=== PATIENT | male | born 1965 | race Caucasian/White ===

== ENCOUNTER 2021-08-12 17:52 | Inpatient (IN) | payer BC ==
[~2021-08-12] VITALS: Ht 167.6 cm; Wt 125.1 kg
[~2021-08-12 17:52] MED LIST: ALEVE220 M1 PO; CIPROFLOXACIN250 MG PO; FLUVIRIN IM; GLUCOPHAGE500 MG PO; IBUPROFEN800 MG PO; METRONIDAZOLE250 MG PO; VITAMIN D1000 UNIT PO
--- OUTSIDE RECORDS SUMMARY | 2021-08-12 18:00 | XMS ---
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 Maria Elena VISIT COUNT (12 MO.) 1 IBAN Ortega TOTAL 1 NOTE: Visits indicate total known visits. ED/UCC VISIT TRACKING (12 MO.) 08/12/2021 17:53 IBAN [place] TYPE: Emergency COMPLAINT: - CHEST PAIN INPATIENT VISIT TRACKING (12 MO.) No inpatient visits to display in this time frame [id number]
[2021-08-12] MEDS ORDERED: FLOVENT HFA10.6 GM INH (18:34)
--- NOTE | 2021-08-13 01:30 | NUR ---
PT ARRIVED TO THE UNIT AROUND 0002 AWAKE AND ALERT ON THE DILTIAZEM DRIP AT 15MG/HR. PT ABLE TO STAND UP AND VOID INTO URINAL PRIOR TO GETTING INTO THE CCU BED. VITALS TAKEN AT THIS TIME. PT ALERT AND ORIENTED X4 AND DENIES CHEST PAIN OR SHORTNESS OF BREATH WHEN ASKED. DILTIAZEM DRIP TITRATED DOWN TO 10MG/HR AT 0020 DUE TO BP BEING BELOW 95 SBP AND HR IN THE 70-80'S. SCHEDULED MEDICATIONS ADMINISTERED AFTERWARDS (SEE MAR). PT ASSESSED AFTERWARDS, CLEAR S1 S2 HEARD, RATE IRREGULAR, LUNGS ARE CLEAR, ACTIVE BOWEL TONES, STRONG RADIAL AND PEDAL PULSES, BRISK CAPILLARY REFILL. PT PROVIDED WITH A SANDWICH BOX AFTERWARDS PER HIS REQUEST. AT 0115 THE DILTIAZEM DRIP WAS TITRATED DOWN TO 7.5 MG/HR HR WAS REMAINING IN THE 70'S BP IN THE 90'S. AGAIN AT 0130 DILTIAZEM DRIP WAS TITRATED DOWN FURTHER TO 2.5MG/HR DUE TO HAVING A BP OF 81/70 (76) AND A HEART RATE IN THE 60'S. PT DENIES LIGHTHEADEDNESS OR DIZZYNESS WHEN ASKED. PT REPORTS NO FURTHER NEEDS AT THIS TIME AND IS NOW RESTING IN BED. WILL CONTINUE PLAN OF CARE. CALL LIGHT IN REACH, BED IN LOWEST POSITION, DILTIAZEM DRIP INFUSING AT 2.5 MG/HR.
--- NOTE | 2021-08-13 01:54 | NUR ---
RAPID RESPONSE CALLED ON THIS PT
--- NOTE | 2021-08-13 03:41 | NUR ---
@0154 rapid reponse called, Primary rn on phone to dr stone. This RN 1:1 with pt. Hr 35, diaphoretic, head back, eyes rolled back, cold, shaking, arms clenched into his chest. o2 placed by Sendy, oximask 15l, pt sluring words. Accucheck @9510=298. house superviser, nelly; davion rt; Sendy RN; Yaritza RN; xray all present. [address] stone present 0203. Iv Lr started wide open @0207. manual bp 62/28. 0.5 mg atropine given @0211; hr 42-36, oxygen 100% on 5l. second dose apropine given 0216 of 0.5 mg iv. bp 63/25 (37) 0217. dopamine 2.5 mcg drip @ 0219, hr 46. Pt placed in trendelenburg @223, not tolerated well. Pt complaining of abdominal pressure, as though he needed to have bm. ekg @ 0221. Staff attempted to put pt on bedpan, howver, pt changed his mind, said pressure decreased. @0226 manual bp of 72/50, heart rates 47-50's. dopamine drip increased to 5 mcg's/kg @0227. pt complain of being dizzy, does state that he feels better than when he "woke up" after symptoms first started. pressure bag of Lr continue. dopamine drip increased to 10 mcg/kg @0231 bp 50/40. second pressure bag LR started @0238. dopamine drip increased to 10 mcg/kg. complained of nausea, zofran 4 mg given At 0240. hr up to 70 @ 0241. pt states less abdominal pressure 0246. manual bp per dr stone of 88/58. pt to ct with dr stone, pt primary rn isabela, RT Jeaneth ricardo, honey extractor, nelly house superviser @ 0250. rapid response done at that time.
--- NOTE | 2021-08-13 04:00 | NUR ---
PT IN BED AWAKE ON 15L O2 OXYMASK PT TAKEN TO CT AROUND 0245. 2 BAGS OF LR ON STRAIGHT TUBING WITH PRESSURE BAGS, DOPAMINE INFUSING AT 15MCG/MIN. THIS RN, VISUAL PRESENTATION MANAGER DR. SARAH CONTRERAS, AND RT LANDY TRANSPORTED PT TO CT. PT MOVED ONTO CT BED, RECEIVED CONTRAST AND HAD AN ABDOMINAL CT. PT MOVED BACK TO THE CCU STRETCHER AFTERWARDS AND HAD AN EPISODE OF EMESIS. AFTER PT WAS FINISHED PT WAS TRANSPORTED BACK TO THE CCU WITH THE SAME CARE TEAM. PT ARRIVED BACK TO THE CCU AT 0310. DOPAMINE TITRATED DOWN TO 10MCG/MIN PER DR. SMITH AT 0319 BP WAS 100/60 MANUAL, 131 HR. AT 0324 THE DOPAMINE INFUSION WAS TITRATED DOWN TO 5MCG/MIN THE BP WAS 100/60 MANUAL AND HR 122. DOPAMINE WAS TURNED OFF AT 0328 BP WAS 96/60 WITH A HR OF 122. AT 0355 DR. SMITH INFORMED THIS RN TO ADMINISTER PHENLYEPHRINE AND START RATE AT 30MCG/MIN. WILL CONTINUE PLAN OF CARE AND ADMINISTER MEDICATION WHEN IT IS MIXED. PT LAYING IN BED AT THIS TIME ON ROOM AIR, CALL LIGHT IN REACH, BED IN LOWEST POSITION, PT SALINE LOCKED.
--- NOTE | 2021-08-13 04:14 | NUR ---
@0244 pt had xray completed. cbc drawn and sent to lab at 8470
--- NOTE | 2021-08-13 05:45 | NUR ---
PT LAYING IN BED AWAKE AND ALERT ON 5L O2 NC. PT BLADDER SCANNED PER DR. SMITH, 232ML SCANNED AT THIS TIME. DR. SMITH IN ROOM AT THIS TIME ASSESSING PT. PHENYLEPHRINE STARTED INTO IV ON RIGHT AC AT 30MCG/MIN PER MD (SEE OCT). PHENYLEPHRINE TITRATED UP BY 30 MCG INCREMENTS PER MD AND STOPPED AT 90 MCG/MIN AT 0437. BP AT THIS TIME WAS 76/59 (65). HR OF 74. DR. SMITH LEFT ROOM AFTERWARDS. PT TITRATED UP TO 120 MCG/MIN AT 0447 TO MAINTAIN MAP'S ABOVE 65. PT NOW ON ROOM AIR, SPO2 92-100%. PT REPORTS FEELING SHORT OF BREATH AT TIMES. PT ASSESSED, LUNGS CLEAR IN UPPER LOBES, DIMINISHED WITH FINE CRACKLES IN THE LOWER BASE. CLEAR S1 S2 PRESENT, RYTHM IRREGULAR. BRISK CAPILLARY REFILL PRESENT. PT COLOR IS PALE IN BADOMEN AND LOWER LEGS. +1 PEDAL PULSES +2 RADIAL PULSES, PT DENIES NUMBNESS OR TINGLING AND IS ALERT AND ORIENTED X4. PT ATTEMPTED TO VOID INTO URINAL AROUND 0530 BUT WAS UNABLE TO. PT NOW BACK TO SITTING ON THE SIDE OF THE BED ON ROOM AIR AND REPORTS NO FURTHER NEEDS. CALL LIGHT IN REACH, BED IN LOWEST POSITION, PHENYLEPHRINE INFUSING AT 120MCG/MIN WILL CONTINUE PLAN OF CARE.
--- NOTE | 2021-08-13 05:59 | NUR ---
I WAS CALLED OVER FOR RAPID RESPONSE ON PT. HIS HEART RATE WAS IN THE 40S EKG WAS DONE TWICE AND O2 WAS PLACED ON PT WENT TO ICU TO MONITOR PT RESPIRATORY STATUS PT IS STABEL
--- NOTE | 2021-08-13 06:22 | NUR ---
PT SITTING AT THE SIDE OF THE BED ALERT AND ORIENTED AT THIS TIME ON ROOM AIR, PT STILL ON 120MCG/MIN OF NEOSYNEPHRINE TO MAINTAIN MAP ABOVE 65. PT DENIES LIGHTHEADEDNESS, DIZZNESS OR PAIN AT THIS TIME WHEN ASKED. PT REPORTS NO FURTHER NEEDS WHEN ASKED WILL CONTINUE PLAN OF CARE. CALL LIGHT INR EACH, BED IN LOWEST POSITION.
--- NOTE | 2021-08-13 06:46 | NUR ---
PT SITTING AT THE SIDE OF THE BED AT THIS TIME ON 5L O2 OXYMASK ALERT AND ORIENTED. PT TITRATED DOWN ON THE NEOSYNEPHRINE DRIP FROM 120 TO 90 MCG/MIN (SEE MAR/VITALS). PT UP AT THE SIDE OF THE BED TO VOID. PT ABLE TO VOID ONLY 50ML OF URINE AND STATES HE FEELS IF HE HAS MORE TO VOID BUT CANT AT THIS TIME. PT DENIES DIZZYNESS WHEN STANDING AT THE SIDE OF THE BED. PT NOW SITTING AT THE SIDE OF THE BED RESTING. PT REPORTS NO FURTHER NEEDS AT THIS TIME, WILL CONTINUE PLAN OF CARE. CALL LIGHT IN REACH, BED IN LOWEST POSITION.
--- NOTE | 2021-08-13 07:57 | NUR ---
IN PATIENT'S ROOM FOR ASSESSMENT. PATIENT SITTING UP ON EDGE OF BED UPON INITIAL ASSESSMENT. PATIENT REMAINS ON PHENYLEPHRINE AT 90 MCG/MIN AT THIS TIME. PT ALSO REMAINS IN AFIB, RATES IN THE 80-90s WHILE IN ROOM TALKING WITH PATIENT. PATIENT'S BLOOD PRESSURE 93/54 MOST RECENTLY. LUNG SOUNDS ARE RELATIVELY CLEAR IN UPPER LOBES AND FINE CRACKLES IN THE BASES. PATIENT STATES HE DOES NOT HAVE ANY CHEST PAIN AT THE MOMENT, BUT DOES STATE HE HAS SOME "TWINGES" IN THE NIGHT. PATIENT IS ALSO FEELING HOT/COLD AND IS DIAPHORETIC AT THIS TIME. CAP REFILL IS <3 SECONDS AT THIS TIME. NO PITTING EDEMA NOTED. PT DUE TO VOID AND STATES HE HAS TRIED A COUPLE OF TIMES BUT UNABLE TO VOID YET. BLADDER SCANNED HER BILLIARD PARLOR MANAGER FOR AROUND 230 ML. PLAN OF CARE DISCUSSED. PT NOT WANTING ANY BREAKFAST AT THIS TIME. CALL LIGHT WITHIN REACH. CONTINUE TO MONITOR.
--- NOTE | 2021-08-13 08:30 | NUR ---
ECHO IN ROOM AT THIS TIME. PT GIVEN 9 UNITS OF SUB Q INSULIN PER SS FOR CBG OF 348. SP02 IS 97% ON ROOM AIR. HR IN THE 80s. WHEN PATIENT GOES FROM SITTIGN UP RIGHT TO LAYING DOWN, PATIENT SUDDENLY FEELS WINDED AND SHORT OF BREATH. HEAD ELEVATED FOR COMFORT AND PT INSTRUCTED ON BREATHING TECHNIQUES. WILL CONTINUE TO MONITOR.
[2021-08-13] MEDS ORDERED: VENTOLIN HFA18 GM INH (09:20)
[2021-08-13] MEDS ORDERED: METFORMIN HCL500 MG PO (09:23)
[2021-08-13] MEDS ORDERED: MUCINEX FAST-M180 M4 PO (10:12)
--- NOTE | 2021-08-13 10:13 | NUR ---
MED REC COMPLETED BY PHARMACY
--- NOTE | 2021-08-13 12:13 | NUR ---
THIS RN PLACED CALLS TO [facility] DIFFERENT H[facility]PITALS IN [facility], [facility], [facility]. THE HOSPITALS DECLINED TRANSFER AT THIS TIME AND REPORT THAT THEY ARE CURRENTLY BOARDING PTS THEMSELVES IN THEIR ER. DR. SARAH JENSEN.
--- NOTE | 2021-08-13 12:42 | NUR ---
PICC INSERTION NOTE: ASKED BY DR. SMITH TO EVALUATE PATIENT FOR POTENTIAL PICC LINE PLACEMENT. AFTER REVIEWING THE CHART AND INTERVIEWING THE PATIENT, NO ABSOLUTE CONTRAINDICATIONS WERE IDENTIFIED. PATIENT WAS ABLE TO SIGN CONSENT FOR PICC AND ASK QUESTIONS REGARDING PROCEDURE. PATIENT'S RIGHT ARM WAS EVALUATED FIRST USING THE SITE RITE 8 U/S. PATIENT'S BASILIC VEIN WAS EASILY IDENTIFIED, WELL THE BRACHIAL, AND THE BASILIC APPEARED TO BE THE BEST CANDIDATE FOR A PICC LINE. PATIENT IS ON VASOPRESSORS AND IN NEED OF STABLE IV ACCESS. USING A 4FR PICC, IT WAS ESTIMATED THAT A PICC WOULD TAKE UP 25% OF THE VEIN DIAMTER, AND THEREFORE THIS VEIN WAS CHOSEN FIRST CHOICE FOR A PICC. PATIENT'S ARM WAS PREPPED AND STERILLY DRAPPED USING CDC RECOMMENDATIONS FOR STERILE PROCEDURE. IV ACCESS WAS OBTAINED UPON FIRST ATTEMPT INTO THE BASILIC VEIN AND DARK, NON PULSATILE BLOOD WAS RETURNED. GUIDEWIRE WAS THEN THREADED EASILY INTO VEIN. AFTER CATHETER WAS REMOVED, INTRODUCER WAS SLID OVER WIRE AND INTO VEIN, AFTER USING SCALPEL TO OPEN SKIN OPENING SLIGHTLY. NEXT, AFTER GUIDEWIRE WAS REMOVED, THE PICC WAS ADVANCED SLOWLY INTO THE VEIN THROUGH THE INTRODUCER. TIP LOCATION TECHNOLOGY WAS UTILIZED TO MONITOR TIP LOCATION THROUGH CENTRAL CHEST. CHEST XRAY WAS TAKEN AFTER OPTIMAL POSITION. DR. SMITH IN PATIENT'S ROOM TO REVIEW THIS AND RECOMMEDED PULLING PICC BACK 3 CM, WHICH WAS DONE. 2ND CHEST XRAY WAS TAKEN AND DR. SMITH APPROVED TIP LOCATION. STERILE DRESSING APPLIED AND PRESSURE DRESSING APPLIED DUE TO SOME BLEEDING UNDER THE DRESSING NOTED. EDUCATION MATERIAL PROVIDED FOR PATIENT AND PLACED IN CHART.
--- NOTE | 2021-08-13 14:38 | NUR ---
PATIENT SITTING UPRIGHT IN BED AND RESTING. PT REMAINS OFF NEOSYNEPHRINE GTT SINCE 1230 AND MOST RECENT BP IS 115/97 (105). PT HAS NOW VOIDED TO URINAL AGAIN FOR 250 ML. PT STATES OVERALL HE IS FEELING OKAY WHEN HE IS RESTING IN BED AND NOT MOVING AROUND MUCH, BUT WITH ANY ACITIVYT, PULLING UP BLANKETS OR REPOSITIONING IN BED FOR INSTANCE, HE BECOMES SHORT OF BREATH AND "CAN FEEL HIS HEART POUNDING AGAIN." PT REMAINS IN AFIB, HR IN THE 90-110s. CONTINUE TO MONITOR CLOSELY.
--- NOTE | 2021-08-13 16:35 | EKG ---
[facility] [address] [place] [address] Signed Atrial fibrillation with rapid ventricular response Nonspecific T wave abnormality Abnormal ECG When compared with ECG of 30-JUN-2018 10:11, Atrial fibrillation has replaced Sinus rhythm Vent. rate has increased BY 93 BPM Non-specific change in ST segment in Inferior leads Non-specific change in ST segment in Anterolateral leads Nonspecific T wave abnormality now evident in Lateral leads Confirmed by ALEXANDRA SMITH MD ([id number]) on 08/13/2021 4:35:45 PM Electronically Signed By: ALEXANDRA SMITH MD 08/13/21 1635 PATIENT NAME: TANISHA CARTAGENA Electrocardiogram DATE OF : 63 PHYSICIAN: ALEXANDRA SMITH MD REPORT #: [id number] REPORT IS CONFIDENTIAL AND NOT TO BE RELEASED WITHOUT AUTHORIZATION
--- NOTE | 2021-08-13 16:36 | EKG ---
[facility] [address] [facility] [place] [address] Signed Atrial fibrillation with slow ventricular response T wave abnormality, consider lateral ischemia Abnormal ECG When compared with ECG of 12-AUG-2021 18:00, (Unconfirmed) Vent. rate has decreased BY 94 BPM Nonspecific T wave abnormality, improved in Inferior leads Nonspecific T wave abnormality, worse in Anterior leads Confirmed by ALEXANDRA SMITH MD ([id number]) on 08/13/2021 4:35:52 PM Electronically Signed By: ALEXANDRA SMITH MD 08/13/21 1636 PATIENT NAME: TANISHA CARTAGENA Electrocardiogram DATE OF : 63 PHYSICIAN: ALEXANDRA SMITH MD REPORT #: [id number] REPORT IS CONFIDENTIAL AND NOT TO BE RELEASED WITHOUT AUTHORIZATION
--- NOTE | 2021-08-13 16:36 | EKG ---
[facility] [address] [facility] [facility] [place] [address] Signed Atrial fibrillation with slow ventricular response T wave abnormality, consider anterolateral ischemia Abnormal ECG When compared with ECG of 13-AUG-2021 01:53, (Unconfirmed) Inverted T waves have replaced nonspecific T wave abnormality in Anterior leads Confirmed by ALEXANDRA SMITH MD ([id number]) on 08/13/2021 4:35:57 PM Electronically Signed By: ALEXANDRA SMITH MD 08/13/21 1636 PATIENT NAME: TANISHA CARTAGENA Electrocardiogram DATE OF : 63 PHYSICIAN: ALEXANDRA SMITH MD REPORT #: [id number] REPORT IS CONFIDENTIAL AND NOT TO BE RELEASED WITHOUT AUTHORIZATION
--- NOTE | 2021-08-13 17:09 | NUR ---
PATIENT RESTING IN BED AT THIS TIME. PT WORKED WITH RT ON IS USE AND DOES THIS WELL. PT STARTING TO COUGH UP SPUTUM, SOME OF WHICH IS PINK TINGED AND EVEN ONE THAT WAS BLOODY TINGED. DR. SMITH TO BE NOTIFIED.
--- NOTE | 2021-08-13 18:23 | NUR ---
DR. SMITH IN TO SEE PATIENT AT THIS TIME AND DISCUSS FINDINGS OF ECHO. PATIENT AND PHYSICIAN DISCUSSING MEDICATIONS AND PLANS OF CARE.
--- NOTE | 2021-08-13 19:00 | NUR ---
20 MG IV LASIX GIVEN. PATIENT'S HR RANGING IN THE 105-120s AFIB AT THIS TIME.
--- NOTE | 2021-08-13 19:40 | NUR ---
URNAL EMPTIED. PATIENT RESPONDING TO LASIX. REPORTS FEELING WELL, HAVING SOME GAS AND THINKS HE MIGHT NEED TO HAVE A BM. PATIENT USING URNAL AT BEDSIDE. HR 110'S AT REST. DENIES ANY CONCERNS AT THIS TIME. CALL LIGHT IN REACH.
--- NOTE | 2021-08-13 20:15 | NUR ---
URNAL EMPTIED AGAIN. PATIENT SITTING AT EDGE OF BED ON THE PHONE. HR UP TO 130'S WHEN HE STANDS TO VOID. PATIENT DENIES FEELING SOB OR DIZZY. NO OTHER NEEDS AT THIS TIME. CALL LIGHT IN REACH.
--- NOTE | 2021-08-13 21:15 | NUR ---
PATIENT PROVIDED WITH SOUP AND CRACKERS. DENIED ANY GI UPSET AT THIS TIME. NO PAIN. VS STABLE. ORAL TEMP WNL. DENIES NEED TO HAVE BM AT THIS TIME BUT CONTINUES TO PASS GAS. ACCU CHECK AND SSI PROVIDED WHEN PATIENT DONE WITH SNACK. PICC LINE FLUSHED EASILY, RETURNS BLOOD, HEPA-LOCKED BOTH LUMENS. SITE APPEARS WNL. PATIENT READY TO SLEEP. LIGHTS DIMMED. CALL LIGHT IN REACH.
--- NOTE | 2021-08-13 23:18 | NUR ---
PATIENT REPORTS SLEEPING OFF AND ON. APPEARS COMFORTABLE AND RELAXED. BP CUFF REPOSITIONED. VS STABLE. HR 90-100 AT REST. URNAL EMPTIED. PATIENT DENIES ANY CONCERNS OR NEEDS. CALL LIGHT IN REACH.
--- NOTE | 2021-08-14 00:30 | NUR ---
URNAL EMPTIED. PATIENT RESTING IN BED. DENIES ANY CONCERNS AT THIS TIME. VS STABLE. HR 90-100 AT REST.
--- NOTE | 2021-08-14 02:30 | NUR ---
PATIENT'S O2 SATS READING 83-85%. PATIENT WOKE UPON RN ENTERING ROOM. APPEARS TO HAVE BAD READING ON PULSE OX DUE TO PATIENT SLEEPING WITH HIS HAND UNDER HIS THIGH. REPOSITIONED PULSE OX AND PATIENT'S HAND, O2 SATS 97% ON ROOM AIR. PATIENT DENIED ANY CONCERNS. CALL LIGHT IN REACH.
--- NOTE | 2021-08-14 05:00 | NUR ---
MORNING LABS DRAWN FROM PICC. PATIENT REPORTS FEELING WELL RESTED AND WILL CONTINUE TO SLEEP. NO PAIN OR GI UPSET. VS STABLE.
--- NOTE | 2021-08-14 08:00 | NUR ---
RECEIVED REPORT AT 0700, PT IN BED RESTING HR IN THE 90'S. NO NEW CONCERNS NOTED AT THAT TIME. AT THIS TIME, ALL LOBES ARE CLEAR, HR IS IRREGULAR, ABD SONDS PRESENT, PT DOES HAVE NILTON. GENERAL HAND EDEMA PRESENT, RADIAL AND PEDIS PULSES +2, PT DENIES SOB, CHEST PAIN AND OTHER PAIN AT THIS TIME.
--- NOTE | 2021-08-14 08:10 | NUR ---
Spoke with Santos. 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 States he had covid Jul 8, began having Afib after. Afib is new onset. He's waiting ting hear if he will transfer to [facility] or if his new meds will stabilize his AFib and a friend will drive him home. He will then followup with his pcp. He denies needs. Lives with his and she will assist him as needed. 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
--- NOTE | 2021-08-14 08:58 | NUR ---
AT ABOUT 0845 HR WENT UP TO 150 WITH PT JUST SITTING ON SIDE OF BED EATING. MD SMITH WAS CALLED. HE IS ON HIS WAY.
--- NOTE | 2021-08-14 09:45 | NUR ---
PT IN BED RESTING. HR STILL ELEVATED 110-130'S, PT HOWEVER DENIES CHEST PAIN AND OR SOB. WILL CONTINUE TO MONITOR.
--- NOTE | 2021-08-14 12:00 | NUR ---
HR UP TO 130'S WITH ACTIVITY. OTHERWISE HR <120. PT DENIES SOB/ CHEST PAIN. URINE OUTPUT IS GOOD WITH LASIX. NO NEW CONCERNS NOTED WITH SECOND SHIFT ASSESSMENT. PT AT THIS TIME IS UP IN CHAIR.
--- NOTE | 2021-08-14 13:09 | NUR ---
PATIENT SITTING UP IN CHAIR, FINISHED WITH LUNCH. PATIENT GIVEN WARM WIPES FOR BEDBATH. PATIENT VERBALIZES UNDERSTANDING TO CALL IF ANY ASSISTANCE IS NEEDED. THIS BUSINESS ADMINISTRATION PROFESSOR WILL CHECK BACK IN ON PATIENT. CALL LIGHT IN EASY REACH
--- NOTE | 2021-08-14 14:00 | NUR ---
PT BACK IN BED. HR IN THE 130'S MOSTLY. PT DENIES ANY SOB/CHEST PAIN. WILL CONTINUE TO MONITOR.
--- NOTE | 2021-08-14 15:00 | NUR ---
PT IN BED RESTING AND WATCHING TV. NO NEW CONCERNS NOTED AT THIS TIME.
--- NOTE | 2021-08-14 16:20 | NUR ---
HR IN THE LOW 100'S AT THIS TIME. PT DENIES SOB AND CHEST PAIN. BP'S WDL, URINE OUPUT WDL SO FAR. PT DID HAVE A 2.23 SECOND PAUSE A LITTLE WHILE AGO. WILL CONTINUE TO MONITOR.
--- NOTE | 2021-08-14 18:30 | NUR ---
PT ATE ALL HIS DINNER. HR UP TO 120. BP'S WDL.OVERALL PT HAD A GOOD DAY.
--- NOTE | 2021-08-14 20:00 | NUR ---
PATIENT SITTING AT THE EDGE OF THE BED. REPORTS FEELING BETTER THIS EVENING THAN HE HAS BEEN. VS STABLE. PATIENT REQUESTING TO USE BATHROOM, DISCUSSED RISK WITH PATIENT AND PATIENT FEELS CONFIDENT IN HIS ABILITY TO WALK THAT FAR. DOES NOT FEEL LIGHTHEADED OR DIZZY WITH ACTIVITY. SOB HAS IMPROVED. HR 120 WITH STANDING AT BEDSIDE. ASSISTED PATIENT WITH CORD MANAGEMENT, PATIENT IS STEADY ON HIS FEET.
--- NOTE | 2021-08-14 21:00 | NUR ---
ACCU CHECK AND SSI PROVIDED. PATIENT VS STABLE. DISCUSSED LOPRESSOR DOSE AND ANSWERED QUESTIONS ON HF MANAGEMENT. PATIENT VERBALIZED UNDERSTANDING OF DIET AND LIFESTYLE CHANGES. LUNG SOUNDS ARE CLEAR. TOLERATING ROOM AIR. VS STABLE. PICC LINE RETURNS BLOOD IN BOTH LUMENS AND IS HEPA-LOCKED. ABD AND CHEST HAVE SOME REDNESS TO THEM BUT PATIENT DENIES CONCERNS. PATIENT USING URNAL, GOOD OUTPUT TODAY AFTER LASIX. NO GI UPSET. DENIED PAIN. PATIENT RESTING IN BED READY FOR SLEEP, CALL LIGHT IN REACH.
--- NOTE | 2021-08-14 23:38 | NUR ---
PATIENT UP TO THE BATHROOM TO HAVE BM AND VOID. PATIENT STEADY ON HIS FEET AND HR 110-120 WITH ACTIVITY. PATIENT REPORTS FEELING SOME "BREATHING" DIFFERENCES WHILE HES ATTEMPTING TO SLEEP. PATIENT DENIES SOB BUT DESCRIBES "NOT TAKING A FULL BREATH". PATIENT'S O2 SATS >95% ON RA. RR 14-20. LUNG SOUNDS ARE CLEAR. PATIENT STATES "IT'S MAYBE SOME ANXIETY". DISCUSSED OPTIONS FOR POSSIBLE CPAP OR DISCUSSION WITH RT, PATIENT DECLINED. O2 MONITORING CONTINUOUS, MONITOR TURNED SO PATIENT SO HE CAN SEE THE NUMBERS PER REQUEST. NO OTHER NEEDS AT THIS TIME. CALL LIGHT IN REACH.
--- NOTE | 2021-08-15 05:30 | NUR ---
PATIENT RESTING IN BED, LABS DRAWN. PATIENT REPORTS DIFFICULTY SLEEPING BUT DENIES ANY CONCERNS. VS STABLE.
--- NOTE | 2021-08-15 08:00 | NUR ---
RECEIVED REPORT AT 0700. PT IN ROOM RESTING. AT THIS TIME HR IN THE LOW 100'S AND IN THE 120'S-130'S WITH ACTIVITY. PT REMAINS ASYMPTOMATIC. ALL LOBES ARE CLEAR, BILATERAL HAND EDEMA HAS DECREASED FROM YESTERDAY, PT HOWEVER AT THIS TIME HAS TRACE PITTING EDEMA IN BOTH LOWER LEGS. THIS WAS NOT PRESENT YESTERDAY. STANDING WEIGHT WAS 125.1KG. WILL CONTINUE TO MONITOR. PT MAY NEED A 2G NA+ SECONDARY DIET WELL.
--- NOTE | 2021-08-15 09:13 | NUR ---
AT THIS TIME I WAS UNABLE TO GET BLOOD RETURN IN BOTH LUMENS OF THE PICC LINE. SAJI CARLOS IS NOW TRYING TO GET SOME BLOOD RETURN. AWARE.
--- NOTE | 2021-08-15 10:06 | NUR ---
CATH FLOW WAS USED AT ABOUT 0935. AT THIS TIME NO BLOOD RETURN NOTED IN BOTH LUMENS. WILL LET IT SIT AND TRY AGAIN IN 30 MINUTES.
--- NOTE | 2021-08-15 11:06 | NUR ---
AT THIS TIME BOTH PICC LINE LUMENS HAVE BLOOD RETURN ONCE MORE. BOTH LUMENS ASPIRATED BACK BLOOD AND 10MLS NS FLUSH WAS ADMINISTERED AND THEN BOTH LUMENS WERE HEP-LOCKED. PT AT THIS TIME IS ALSO ON TELE #9 FOR MORE INDEPENDENCE IN ROOM. PT IS DOING WELL WALKING TO BATHROOM ON HIS OWN.
--- NOTE | 2021-08-15 12:00 | NUR ---
PT DID TAKE A SHOWER IN ROOM 126. PT DID WALK THERE AND BACK. PT STATED THAT HE FELT A BIT SOB, BUT OVERALL IT WAS NOT BAD. PT NOW BACK IN ROOM SHAVING AND SHOWERING.
--- NOTE | 2021-08-15 13:13 | NUR ---
HR SINCE PT RETURNED FROM SHOWER HAS BEEN 120'S-150'S. MD SMITH CALLED TO GIVE LOPRESSOR NOW. IT WAS GIVEN. PT AGREED TO LAY DOWN AND REST FOR THE TIME BEING UNTIL HIS HR DECREASES SOME. OTHERWISE NO NEW CONCERNS WERE NOTED.
--- NOTE | 2021-08-15 15:10 | NUR ---
PT IS STANDING AT BEDSIDE TO VOID INTO URINAL. HR UP TO 150'S THEN. OTHERWISE LOW 100'S.
--- NOTE | 2021-08-15 16:00 | NUR ---
V/S OVERALL WDL, HR AROUND 90'S -110. ALL OTHER V/S WDL. LOBES CLEAR, HR IRREGULAR. STILL SOME TRACE EDMMA BILATERAL LOWER LEGS. BILAYTERAL HAND EDEMA NO PRESENT ANYMORE.
--- NOTE | 2021-08-15 18:18 | NUR ---
PT NOW HAS A BED AT [facility]. ORGANIZING TRANSPORT AT THIS TIME.
--- NOTE | 2021-08-15 18:18 | NUR ---
RT COLLECTED RAPID COVID [address] ORDER WITH NO COMPLICATIONS AT THIS TIME.
--- NOTE | 2021-08-15 18:31 | NUR ---
PATIENT HAS BEEN ACCEPTED AT [facility] AND WILL TRANSFER THERE TONIGHT.
--- NOTE | 2021-08-15 20:57 | NUR ---
REPORT GIVEN TO [employer]W. VITALS STABLE. PT LEFT WITH ALL BELONGINGS. REPORT CALLED TO Radha AT [facility] AT 2150. ALL QUESTIONS ANSWERED AT THIS TIME. PT DENIES ANY NEEDS OR FURTHER QUESTIONS.
== END 2021-08-15 20:38 | disposition short-term general hospital (02) | DRG 308 ==
LOC: ED 17:52 → CCU 23:44
PROVIDERS: ADMIT Internal Medicine; ATTEND Internal Medicine
DX: I48.0 Paroxysmal atrial fibrillation (principal); I50.23 Acute on chronic systolic (congestive) heart failure; Z68.41 Body mass index [BMI] 40.0-44.9, adult; N17.9 Acute kidney failure, unspecified; I24.8 Other forms of acute ischemic heart disease; Z96.653 Presence of artificial knee joint, bilateral; E11.65 Type 2 diabetes mellitus with hyperglycemia; I11.0 Hypertensive heart disease with heart failure; E66.01 Morbid (severe) obesity due to excess calories; E87.5 Hyperkalemia; N14.1 Nephropathy induced by other drugs, medicaments and biological substances; T50.8X5A Adverse effect of diagnostic agents, initial encounter; I95.2 Hypotension due to drugs; I25.5 Ischemic cardiomyopathy; T44.7X5A Adverse effect of beta-adrenoreceptor antagonists, initial encounter; Z90.49 Acquired absence of other specified parts of digestive tract; Z79.899 Other long term (current) drug therapy; Z79.51 Long term (current) use of inhaled steroids; Z86.16 Personal history of COVID-19; Z87.891 Personal history of nicotine dependence
CPT/HCPCS: 36569; 71045; 71260; 74018; 74177; 80048; 80053; 83036; 83735; 83880; 84484; 85025; 93005; 93010; 93306; 99285-25; C1751; C9113; C9803; J0461; J1265; J1644; J1650; J1815; J1940; J2370; J2405; J2997; J7040; J7060; Q9967; U0003